=== PATIENT | female | born 1985 | race African-American/Black ===

== ENCOUNTER 2019-09-11 13:45 | Emergency (ER) | payer BC ==
[2019-09-11 14:09] VITALS: BMI 37.4
--- NOTE | 2019-09-11 14:41 | PDOC ---
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 Patient does not remember any inciting event prior to the pain. Denies any trauma or recent exercise or heavy lifting. Patient has tried heating pad and Excedrin without relief. The pain is described as sharp stinging pain and now radiating to her b/l groin. Denies any loss of bladder or bowel function, denies any loss sensation to b/l extremities. Patient is ambulatory but with pain. Patient is not currently followed by PCP or oncology. No recent travel or sick contacts. PAST MEDICAL HISTORY: Denies past medical history FAMILY HISTORY: Denies SOCIAL HISTORY: Denies tobacco, alcohol, illicit drug use. SURGICAL HISTORY: Denies ALLERGIES: No known drug allergies REVIEW OF SYSTEMS General/Constitutional: Denies fever or chills. Denies weakness, weight change. HEENT: Denies change in vision. Denies ear pain or discharge. Denies sore throat. Cardiovascular: Denies chest pain or shortness of breath. Respiratory: Denies cough, wheezing, or hemoptysis. Gastrointestinal: Denies nausea, vomiting, diarrhea or constipation. Denies rectal bleeding. Genitourinary: Denies dysuria, frequency, or change in urination. Musculoskeletal: New onset atraumatic back pain x 1 week. Skin and breasts: Denies rash or easy bruising. Neurologic: Denies headache, vertigo, loss of consciousness, or loss of sensation. Psychiatric: Denies depression or anxiety. PHYSICAL EXAM General Appearance: Well-appearing, appropriately dressed. No apparent distress. HEENT: EOMI, PERRLA, normal ENT inspection, normal voice, TMs normal, pharynx normal. No conjunctival pallor. No photophobia, scleral icterus. Neck: Supple. Trachea midline. No tenderness, rigidity, carotid bruit, stridor , lymphadenopathy, or thyromegaly. Respiratory/Chest: Lungs CTAB. No shortness of breath, chest tenderness, respiratory distress, accessory muscle use. No crackles, rales, rhonchi, stridor , wheezing, dullness Cardiovascular: RRR. S1, S2. No JVD, murmur, bradycardia, tachycardia. Vascular Pulses: Dorsalis-Pedis (R): 2+, Dorsalis-Pedis (L): 2+ Gastrointestinal/Abdominal: Normal bowel sounds. Abdomen soft, non-distended. No tenderness or rebound tenderness. No organomegaly, pulsatile mass, guarding , hernia, hepatomegaly, splenomegaly. Musculoskeletal/Extremities: No tenderness to paravertebral muscles on palpation, no midline spine tenderness. Normal inspection. FROM of all extremities, normal capillary refill. Pelvis Stable. No CVA tenderness. No tenderness to extremities, pedal edema, swelling, erythema or deformity. Integumentary: Appropriate color, dry, warm. No cyanosis, erythema, jaundice or rash Neurologic: internal grinder set up operator II-XII intact. Fully oriented, alert. Appropriate mood/affect. Motor strength 5/5. No appreciable EOM palsy, facial droop or sensory deficit. Past History - Past Medical History Allergies/Adverse Reactions: Allergies Allergy/AdvReac Type Severity Reaction Status Date / Time No Known Allergies Allergy Verified 09/11/19 14:08 Home Medications: Ambulatory Orders Methocarbamol [Robaxin -] 500 mg PO BID PRN #14 tablet 09/11/19 Methylprednisolone [Medrol Dose Adiel] 4 mg PO ASDIR #21 tablet 09/11/19 Cancer: Yes (L ARM) COPD: No - Psycho Social/Smoking Cessation Hx Smoking History: Never smoked *Physical Exam - Vital Signs Last Vital Signs Temp Pulse Resp BP Pulse Ox 98 F 90 18 148/112 H 99 09/11/19 14:05 09/11/19 14:05 09/11/19 14:05 09/11/19 14:05 09/11/19 14:05 ED Treatment Course - LABORATORY CBC & Chemistry Diagram: 09/11/19 14:56 09/11/19 14:56 Medical Decision Making - Medical Decision Making 09/11/19 14:41 34 yo F with hx synovial sarcoma (chemo in 1994, completed radiation 1996, has been in remission since) presents to ED with new onset back pain x 1 week. Exam unremarkable, no tenderness to midline spine or paravertebral muscles. Given pt's hx of synovical sarcoma will require workup to r/o recurrent malignancy. -labs -CT Case discussed in detail with oncoming emergency provider including history, physical exam and ancillary studies. In brief, this patient is being seen in the ED for a chief complaint of: new back pain, hx of malignancy Pending results: CT Please call the PCP: none Plan for disposition as follows: pending Oncoming NPA Miladys has assumed care for the patient and will complete the evaluation and treatment. Discharge - Discharge Information Problems reviewed: Yes Clinical Impression/Diagnosis: Lumbago without sciatica Qualifiers: Chronicity: acute Back pain laterality: bilateral Qualified Code(s): M54.5 - Low back pain Condition: Stable Disposition: HOME - Additional Discharge Information Prescriptions: Methocarbamol [Robaxin -] 500 mg PO BID PRN #14 tablet PRN Reason: Back Pain Methylprednisolone [Medrol Dose Adiel] 4 mg PO ASDIR #21 tablet - Follow up/Referral Referrals: Toney Bergeron MD, FA[facility] [Staff Physician] - - Patient Discharge Instructions Patient Printed Discharge Instructions: DI for Low Back Pain Additional Instructions: Your back CAT scan shows no herniated disc, fracture or dislocation of his spine. Your symptoms likely caused by spasm. Take prescribed medication as prescribed for pain and spasm. Apply hot compress to back as needed for pain. Follow-up referred orthopedic performance improvement specialist if no improvement in 3 days - Post Discharge Activity Work/Back to School Note: Back to Work
[2019-09-11 15:12] LABS: BASO % 0.8 % (0-2.0); HEMATOCRIT 41.4 % (32.4-45.2); HEMOGLOBIN 13.3 GM/dL (10.7-15.3); LYMPH % 33.7 % (8-40); MCHC 32.2 g/dl (32.0-36.0); MEAN CELL VOLUME 77.6 fl (80-96); MEAN PLT VOLUME 8.5 fl (7.5-11.1); MONO % 9.8 % (3.8-10.2); NEUT % 54.7 % (42.8-82.8); PLATELET COUNT 304 K/MM3 (134-434); RBC 5.33 M/mm3 (3.60-5.2); RDW 15.4 % (11.6-15.6); WHITE BLOOD COUNT 8.8 K/mm3 (4.0-10.0)
[2019-09-11 15:38] LABS: ALBUMIN 4.4 g/dl (3.4-5.0); BILIRUBIN,TOTAL 0.5 mg/dL (0.2-1); BLOOD UREA NITROGEN 12.5 mg/dL (7-18); CALCIUM 9.6 mg/dL (8.5-10.1); CREATININE 1.1 mg/dL (0.55-1.3); POTASSIUM 4.3 mmol/L (3.5-5.1); TOT PROT 8.1 g/dl (6.4-8.2)
[2019-09-11 15:48] LABS: URINE APPEARANCE CLEAR; URINE BILIRUBIN NEGATIVE (NEGATIVE); URINE COLOR YELLOW; URINE GLUCOSE (UA) NEGATIVE (NEGATIVE); URINE KETONE NEGATIVE (NEGATIVE); URINE LEUK ESTERASE NEGATIVE (NEGATIVE); URINE NITRITE NEGATIVE (NEGATIVE); URINE PROTEIN NEGATIVE (NEGATIVE); URINE UROBILINOGEN 0.2 mg/dL (0.2-1.0)
--- NOTE | 2019-09-11 16:49 | PDOC ---
*Physical Exam - Vital Signs Last Vital Signs Temp Pulse Resp BP Pulse Ox 98 F 90 18 148/112 H 99 09/11/19 14:05 09/11/19 14:05 09/11/19 14:05 09/11/19 14:05 09/11/19 14:05 - Physical Exam General Appearance: Yes: Nourished, Appropriately Dressed. No: Apparent Distress HEENT: positive: NAT, Normal ENT Inspection, Pharynx Normal Neck: positive: Supple Respiratory/Chest: positive: Lungs Clear, Normal Breath Sounds. negative: Respiratory Distress, Accessory Muscle Use Cardiovascular: positive: Regular Rhythm, Regular Rate Musculoskeletal: positive: Normal Inspection. negative: CVA Tenderness, Vertebral Tenderness Extremity: positive: Normal Inspection Integumentary: positive: Normal Color Neurologic: positive: Fully Oriented, Alert, Normal Mood/Affect, Normal Response ED Treatment Course - LABORATORY CBC & Chemistry Diagram: 09/11/19 14:56 09/11/19 14:56 - ADDITIONAL ORDERS Additional order review: Laboratory Results 09/11/19 09/11/19 09/11/19 14:56 14:56 14:56 Sodium 136 Potassium 4.3 Chloride 103 Carbon Dioxide 28 Anion Gap 5 L BUN 12.5 Creatinine 1.1 Est GFR (CKD-EPI)AfAm 74.80 Est GFR (CKD-EPI)NonAf 64.54 Random Glucose 93 Calcium 9.6 Total Bilirubin 0.5 AST 18 ALT 28 Alkaline Phosphatase 68 Total Protein 8.1 Albumin 4.4 Urine Color Yellow Urine Appearance Clear Urine pH 7.0 Ur Specific [place] 1.015 Urine Protein Negative Urine Glucose (UA) Negative Urine Ketones Negative Urine Blood Negative Urine Nitrite Negative Urine Bilirubin Negative Urine Urobilinogen 0.2 Ur Leukocyte Esterase Negative Urine HCG, Qual Negative 09/11/19 14:56 RBC 5.33 H MCV 77.6 L MCHC 32.2 RDW 15.4 MPV 8.5 Neutrophils % 54.7 Lymphocytes % 33.7 Monocytes % 9.8 Eosinophils % 1.0 Basophils % 0.8 Medical Decision Making - Medical Decision Making 09/11/19 16:58 I assumed care of this 34-year-old female with history of synovial sarcoma treated with chemo over 20 years ago presented with complaint of sudden onset of lower back pain for a week with no trauma or injury. Lab work done was unremarkable. CT of lumbosacral spine ordered by primary team to rule out recurrent sarcoma. Patient symptoms likely back strain and will discharge home with NSAIDs and muscle relaxer if negative CT with orthopedic spine follow- up.Toradol 60 mg IM Robaxin 5 mg p.o. ordered for pain and spasm as patient complained of pain. 09/11/19 18:[address] shows no acute pathology or herniation. Patient symptoms likely back spasm. Patient stable for discharge on Medrol pack for anti-inflammatory effect and Robaxin for spasm with advised to do hot compress with orthopedic spine follow-up Discharge - Discharge Information Problems reviewed: Yes Clinical Impression/Diagnosis: Lumbago without sciatica Qualifiers: Chronicity: acute Back pain laterality: bilateral Qualified Code(s): M54.5 - Low back pain Condition: Stable Disposition: HOME - Admission No - Additional Discharge Information Prescriptions: Methocarbamol [Robaxin -] 500 mg PO BID PRN #14 tablet PRN Reason: Back Pain Methylprednisolone [Medrol Dose Adiel] 4 mg PO ASDIR #21 tablet - Follow up/Referral Referrals: Toney Bergeron MD, FAANS [Staff Physician] - - Patient Discharge Instructions Patient Printed Discharge Instructions: DI for Low Back Pain Additional Instructions: Your back CAT scan shows no herniated disc, fracture or dislocation of his spine. Your symptoms likely caused by spasm. Take prescribed medication as prescribed for pain and spasm. Apply hot compress to back as needed for pain. Follow-up referred orthopedic executive relations specialist if no improvement in 3 days - Post Discharge Activity
[2019-09-11] MEDS ORDERED: METHOCARBAMOL 500 MG TABLET ONE (17:09)
[2019-09-11] MEDS ORDERED: KETOROLAC TROMETHAMINE 60 MG/2 ML VIAL ONE (17:09)
[2019-09-11] MEDS ORDERED: METHOCARBAMOL 500 MG TABLET PO ONE (17:11)
[2019-09-11] MEDS ORDERED: KETOROLAC TROMETHAMINE 60 MG/2 ML VIAL IM ONE (17:11)
--- NOTE | 2019-09-11 17:12 | PDOC ---
*Physical Exam - Vital Signs Last Vital Signs Temp Pulse Resp BP Pulse Ox 98.0 F 87 19 145/78 100 09/11/19 17:04 09/11/19 17:04 09/11/19 17:04 09/11/19 17:04 09/11/19 17:04 ED Treatment Course - LABORATORY CBC & Chemistry Diagram: 09/11/19 14:56 09/11/19 14:56 - ADDITIONAL ORDERS Additional order review: Laboratory Results 09/11/19 09/11/19 09/11/19 14:56 14:56 14:56 Sodium 136 Potassium 4.3 Chloride 103 Carbon Dioxide 28 Anion Gap 5 L BUN 12.5 Creatinine 1.1 Est GFR (CKD-EPI)AfAm 74.80 Est GFR (CKD-EPI)NonAf 64.54 Random Glucose 93 Calcium 9.6 Total Bilirubin 0.5 AST 18 ALT 28 Alkaline Phosphatase 68 Total Protein 8.1 Albumin 4.4 Urine Color Yellow Urine Appearance Clear Urine pH 7.0 Ur Specific [place] 1.015 Urine Protein Negative Urine Glucose (UA) Negative Urine Ketones Negative Urine Blood Negative Urine Nitrite Negative Urine Bilirubin Negative Urine Urobilinogen 0.2 Ur Leukocyte Esterase Negative Urine HCG, Qual Negative 09/11/19 14:56 RBC 5.33 H MCV 77.6 L MCHC 32.2 RDW 15.4 MPV 8.5 Neutrophils % 54.7 Lymphocytes % 33.7 Monocytes % 9.8 Eosinophils % 1.0 Basophils % 0.8 Medical Decision Making - Medical Decision Making 09/11/19 17:12 Pt seen by Midlevel Provider under my direct supervision Pt interviewed and examined Agree with Tank exam Ancillary studies reviewed CT with no acute findings I agree with plan as outlined by Midlevel Provider D/C home treat pt pain Pt to follow up with PMD/Neurology Discharge - Discharge Information Problems reviewed: Yes Clinical Impression/Diagnosis: Lumbago without sciatica Qualifiers: Chronicity: acute Back pain laterality: bilateral Qualified Code(s): M54.5 - Low back pain Condition: Stable Disposition: HOME - Additional Discharge Information Prescriptions: Methocarbamol [Robaxin -] 500 mg PO BID PRN #14 tablet PRN Reason: Back Pain Methylprednisolone [Medrol Dose Adiel] 4 mg PO ASDIR #21 tablet - Follow up/Referral Referrals: Toney Bergeron MD, FAANS [Staff Physician] - - Patient Discharge Instructions Patient Printed Discharge Instructions: DI for Low Back Pain Additional Instructions: Your back CAT scan shows no herniated disc, fracture or dislocation of his spine. Your symptoms likely caused by spasm. Take prescribed medication as prescribed for pain and spasm. Apply hot compress to back as needed for pain. Follow-up referred orthopedic audio visual specialist if no improvement in 3 days - Post Discharge Activity Work/Back to School Note: Back to Work
[2019-09-11 18:29] VITALS: BP 128/80; PULSE 90; TEMP 98.3
== END 2019-09-11 18:29 | disposition home or self-care (01) ==
LOC: JER 13:45
PROC: 3E0233Z Introduction of Anti-inflammatory into Muscle, Percutaneous Approach (ICD-10-PCS; principal; 2019-09-11)
DX: M54.5 Low back pain (principal); Z85.831 Personal history of malignant neoplasm of soft tissue
CPT/HCPCS: 36415; 72131-TC; 80053; 81003; 84703; 85025; 87086; 99282-25